=== PATIENT | male | born 1990 | race Hispanic/Latino ===

== ENCOUNTER 2021-10-29 12:29 | Emergency (ER) | payer OTHER ==
[~2021-10-29] VITALS: Ht 165.1 cm; Wt 65.8 kg
[2021-10-29 12:52] LABS: BASOPHILS % (AUTO) 0.3 % (0.0-5.0); EOSINOPHILS % (AUTO) 0.4 % (0.0-8.0); HEMATOCRIT 41.8 % (42-54); LYMPHOCYTES % (AUTO) 12.9 % (21.0-51.0); MEAN CORPUSCULAR HEMOGLOBIN 32.3 pg (27.0-33.0); MEAN CORPUSCULAR HGB CONC 35.2 g/dL (32.0-36.0); MEAN CORPUSCULAR VOLUME 91.9 fL (79-99); MONOCYTES % (AUTO) 4.2 % (3.0-13.0); NEUTROPHILS % (AUTO) 81.9 % (40.0-77.0); PLATELET COUNT (AUTO) 224 K/uL (130-400); RED BLOOD CELL COUNT(AUTO) 4.55 MIL/uL (4.50-6.20); RED CELL DISTRIBUTION WIDTH 12.2 % (11.0-15.5); WHITE BLOOD COUNT (AUTO) 9.9 K/uL (4.8-10.8)
[2021-10-29] MEDS ORDERED: 0.9%NACL 1000ML 2,000 ML IV ONE (13:00)
[2021-10-29 13:04] LABS: ABG OXYGEN SATURATION 84.4 % (95.0-99.0); BASE EXCESS,VENOUS BLOOD GAS -1.1 (-2.0-3.0); HCO3,VENOUS BLOOD GAS 24.1 (21.0-28.0); PCO2,VENOUS BLOOD GAS 42 (35-48); PH,VENOUS BLOOD GAS 7.375 (7.350-7.450)
[2021-10-29 13:06] LABS: CREATININE 0.9 mg/dL (0.5-1.5); POTASSIUM 4.9 mmol/L (3.5-5.1)
[2021-10-29 15:05] VITALS: BP 127/79
== END 2021-10-29 15:07 | disposition home or self-care (01) ==
LOC: EDH 12:29
DX: E10.65 Type 1 diabetes mellitus with hyperglycemia (principal)
CPT/HCPCS: 36415; 36600; 80048; 82435; 82803; 82947; 82948 ×2; 83605; 84132; 84295; 85025; 96360; 96361; 99283; J7030